=== PATIENT | male | born 1960 | race Caucasian/White ===

== ENCOUNTER 2019-01-31 16:13 | Inpatient (IN) | payer OTHER ==
[2019-01-31] MEDS ORDERED: SODIUM CHLORIDE 0.9% 1,000 ML IV STA (17:05)
[2019-01-31] MEDS ORDERED: THIAMINE 100 MG/ML 2 ML VIAL IM STA (17:10)
[2019-01-31] MEDS ORDERED: LORazepam 2 MG/ML INJ IV PRN ×2 (17:10)
[2019-01-31] MEDS ORDERED: LORazepam 2 MG/ML INJ IV STA (17:10)
--- NOTE | 2019-01-31 17:13 | ED ---
General Adult HPI - General Chief complaint: Alcohol Stated complaint: Seizure Time Seen by Provider: 01/31/19 16:25 Source: patient, EMS Mode of arrival: EMS Limitations: no limitations - History of Present Illness Initial comments: Dictation was produced using [employer] dictation software. please excuse any grammatical, word or spelling errors. Chief Complaint: 58-year-old male past medical history of coronary artery disea se, diabetes and EtOH abuse presents with seizure and tremors. History of Present Illness: Patient is a 58-year-old male. He has a past medical history of EtOH withdrawal. Patient states he drinks more than a fifth of liquor every day. Patient has had a long history of EtOH dependence. He has had withdrawal symptoms multiple medications. Patient states that he was at [facility] for EtOH detoxification. He reports that he is willing puzzle when he had severe uncontrollable shaking. He allegedly had episode of seizure. EMS was called patient's transfer to the emergency department. Patient states he's been feeling shaky to all of his extremities. He is feeling weak. Patient reports that his last EtOH ingestion was approximately 1 week ago. He states he felt okay over the first 3-4 days at the detoxification center however slowly his symptoms increased to today. Seizure. Patient has been diagnosed with delirium tremens in the past. He's been admitted on multiple occasions for alcohol withdrawals. The ROS documented in this emergency department record has been reviewed and confirmed by me. Those systems with pertinent positive or negative responses have been documented in the HPI. All other systems are other negative and/or noncontributory. PHYSICAL EXAM: General Impression: Alert and oriented x3, not in acute distress, tremulous HEENT: Normocephalic atraumatic, extra-ocular movements intact, pupils equal and reactive to light bilaterally, dry mucous membranes Cardiovascular: Heart regular rate and rhythm, S1&S2 audible, no murmurs, rubs or gallops Chest: Lungs clear to auscultation bilaterally, no rhonchi, no wheeze, no rales Abdomen: Bowel sounds present, abdomen soft, non-tender, non-distended, no organomegaly Musculoskeletal: Pulses present and equal in all extremities, no peripheral edema Motor: no focal deficits noted Neurological: CN II-XII grossly intact, no focal motor or sensory deficits noted Skin: Intact with no visualized rashes Psych: Normal affect and mood ED course: 58-year-old male with clinical presentation consistent with EtOH withdrawal. Vital signs upon arrival are within acceptable limits. Patient is severely tremulous at bedside. Laboratory evaluation obtained. CBC unremarkable. Metabolic panel shows hypomagnesemia 1.4. Alcohol is negative. Patient given Ativan with improvement of symptoms. Patient given treatment as fluids, supplemental parenteral vitamins and magnesium. Case discussed with Darwin wright of [facility] who will be accepting patients care. EKG interpretation: Ventricular rate 70, normal sinus rhythm,. Interval 174, care is 86, QTC 436. No MS prolongation, no QTC prolongation, no ST or T-wave changes noted. . Overall, this EKG is unremarkable - Related Data Home Medications Medication Instructions Recorded Confirmed Acetaminophen [Tylenol Arthritis] 650 mg PO Q4H PRN 01/31/19 01/31/19 Aspirin [[place] Aspirin EC] 81 mg PO DAILY@62901/31/19 01/31/19 Atorvastatin [Lipitor] 40 mg PO HS 01/31/19 01/31/19 Chlorpheniramine Maleate 4 mg PO Q4H 01/31/19 01/31/19 [Chlor-Trimeton] Clopidogrel Bisulfate [Plavix] 75 mg PO DAILY@62901/31/19 01/31/19 FLUoxetine HCL [PROzac] 10 mg PO DAILY@62901/31/19 01/31/19 Ibuprofen [Motrin] 600 mg PO Q6H PRN 01/31/19 01/31/19 Insulin Aspart [NovoLOG Flexpen] 12 units SQ AC-TID 01/31/19 01/31/19 Insulin Detemir (Levemir) [Levemir] 46 units SQ HS 01/31/19 01/31/19 Metoprolol (Unknown) 25mg 1 tab PO DAILY@62901/31/19 01/31/19 NIFEdipine [Procardia XL] 60 mg PO DAILY@62901/31/19 01/31/19 Nitroglycerin 0.4 mg SL Q5M PRN 01/31/19 01/31/19 Omeprazole 40 mg PO DAILY@30 01/31/19 01/31/19 cloNIDine HCL [Catapres] 0.2 mg PO TID@0630,1530,2100 01/31/19 01/31/19 metFORMIN HCL 1,000 mg PO DAILY@0630 01/31/19 01/31/19 traZODone HCL [Desyrel] 100 mg PO HS 01/31/19 01/31/19 Allergies Allergy/AdvReac Type Severity Reaction Status Date / Time No Known Allergies Allergy Verified 01/31/19 16:37 Review of Systems ROS Statement: Those systems with pertinent positive or pertinent negative responses have been documented in the HPI. ROS Other: All systems not noted in ROS Statement are negative. Past Medical History Past Medical History: Chest Pain / Angina, Diabetes Mellitus, Myocardial Infarction ([place]), Seizure Disorder History of Any Multi-Drug Resistant Organisms: None Reported Past Surgical History: Adenoidectomy, Appendectomy, Heart Catheterization With Stent, Hernia Repair, Orthopedic Surgery, Tonsillectomy Past Psychological History: Anxiety, Depression Smoking Status: Former smoker Past Alcohol Use History: Abuse, Daily Past Drug Use History: None Reported General Exam Limitations: no limitations Course Vital Signs 01/31/19 16:19 Temperature 98.5 F Pulse Rate 85 Respiratory 16 Rate Blood Pressure 130/82 O2 Sat by Pulse 96 Oximetry Medical Decision Making - Lab Data Result diagrams: 01/31/19 17:11 01/31/19 17:11 Lab Results 01/31/19 01/31/19 Range/Units 17:11 17:11 WBC 6.0 (3.8-10.6) k/uL RBC 3.74 L (4.30-5.90) m/uL Hgb 11.5 L (13.0-17.5) gm/dL Hct 34.4 L (39.0-53.0) % MCV 92.0 (80.0-100.0) fL MCH 30.9 (25.0-35.0) pg MCHC 33.5 (31.0-37.0) g/dL RDW 13.5 (11.5-15.5) % Plt Count 178 (150-450) k/uL Neutrophils % 60 % Lymphocytes % 24 % Monocytes % 10 % Eosinophils % 2 % Basophils % 0 % Neutrophils # 3.6 (1.3-7.7) k/uL Lymphocytes # 1.4 (1.0-4.8) k/uL Monocytes # 0.6 (0-1.0) k/uL Eosinophils # 0.1 (0-0.7) k/uL Basophils # 0.0 (0-0.2) k/uL Sodium 139 (137-145) mmol/L Potassium 4.5 (3.5-5.1) mmol/L Chloride 105 (98-107) mmol/L Carbon Dioxide 26 (22-30) mmol/L Anion Gap 8 mmol/L BUN 15 (9-20) mg/dL Creatinine 0.92 (0.66-1.25) mg/dL Est GFR (CKD-EPI)AfAm >90 (>60 ml/min/1.73 sqM) Est GFR (CKD-EPI)NonAf >90 (>60 ml/min/1.73 sqM) Glucose 120 H (74-99) mg/dL Calcium 9.3 (8.4-10.2) mg/dL Magnesium 1.4 L (1.6-2.3) mg/dL Serum Alcohol <10 mg/dL Disposition Clinical Impression: Alcohol withdrawal syndrome Disposition: ADMITTED IP TO THIS [facility] Condition: Fair Referrals: None,Stated [Primary Care Provider] - 1-2 days Decision Time: 18:32
[2019-01-31 17:40] LABS: Basophils % (A) 0 %; Eosinophils # (A) 0.1 k/uL (0-0.7); Eosinophils % (A) 2 %; HCT 34.4 % (39.0-53.0); HGB 11.5 gm/dL (13.0-17.5); Lymphocytes # (A) 1.4 k/uL (1.0-4.8); Lymphocytes % (A) 24 %; MCH 30.9 pg (25.0-35.0); MCHC 33.5 g/dL (31.0-37.0); Mean Platelet Volume 7.2; Monocytes # (A) 0.6 k/uL (0-1.0); Monocytes % (A) 10 %; Neutrophils # (A) 3.6 k/uL (1.3-7.7); Neutrophils % (A) 60 %; Platelet Count 178 k/uL (150-450); RBC 3.74 m/uL (4.30-5.90); RDW 13.5 % (11.5-15.5)
[2019-01-31 17:52] LABS: African American GFR (CKD) >90 (>60 ml/min/1.73 sqM); Alcohol <10 mg/dL; Anion Gap 8 mmol/L; Blood Urea Nitrogen 15 mg/dL (9-20); Calcium 9.3 mg/dL (8.4-10.2); Carbon Dioxide 26 mmol/L (22-30); Chloride 105 mmol/L (98-107); Glucose 120 mg/dL (74-99); Magnesium 1.4 mg/dL (1.6-2.3); Potassium 4.5 mmol/L (3.5-5.1); Sodium 139 mmol/L (137-145)
[2019-01-31] MEDS ORDERED: NALOXONE 0.4 MG/ML 1 ML VIAL IV PRN (18:33)
[2019-01-31] MEDS ORDERED: ACETAMINOPHEN TAB 325 MG TAB PO PRN ×2 (18:33→18:34)
[2019-01-31] MEDS: THIAMINE 100 MG TAB PO SCH (18:58)
[2019-01-31] MEDS: SODIUM CHLORIDE 0.9% 1,000 ML IV SCH (20:07)
[2019-01-31] MEDS: MAGNESIUM SULFATE-D5W PMX 1 GM in DEXTROSE/WATER 1 100ML.BAG IVPB SCH ×2 (20:07→22:50)
--- NOTE | 2019-01-31 20:42 | P.HPIM ---
History of Present Illness H&P Date: 01/31/19 The patient is a 58 yo M with a PMH of EtOH abuse, diabetes mellitus, and coronary artery disease presented to the ED from [place] after an episode of seizure and continued tremulousness. The patient notes that he had been drinking approx 1 gallon of Vodka daily for 2 weeks, with his last drink 01/21/19. The following morning he developed chest pain for which he was admitted to [facility] where he was treated for his pain along with his alcohol withdrawal. He was discharged from [facility] on 01/28/19 to [facility] for detox. He notes that he initially felt better while at [facility]. Earlier this morning however, he felt worsening tremors and shakiness and subsequently had a witnessed grand-mal seizure @ 1:30 pm. EMS was called and he was brought to the hospital. He was seen in the ED and notes feeling lethargic and tremulous but otherwise denied active complaints. He denied chest pain, SOB, nausea, vomiting, or palpitations. Denied abdominal pain, diarrhea, headache, weakness, numbness, or visual disturbances. The patient notes that he has previously had seizures though they always occured in the context of alcohol withdrawal. He underwent an extensive evaluation in the ED w/ EKG showing NSR @ 70 bpm with TWI in lead III and T-wave flattening in aVF. Alcohol level was < 10, Magnesium level 1.4, WBC 6.0, Hgb 11.5, Platelet 178, and Cr 0.92. The patient is admitted to the medicine service for EtOH withdrawal with seizure. Review of Systems Pertinent positives and negatives as discussed in HPI, a complete review of systems was performed and all other systems are negative. Past Medical History Past Medical History: Chest Pain / Angina, Diabetes Mellitus, Myocardial Infarction ([place]), Seizure Disorder History of Any Multi-Drug Resistant Organisms: None Reported Past Surgical History: Adenoidectomy, Appendectomy, Heart Catheterization With Stent, Hernia Repair, Orthopedic Surgery, Tonsillectomy Past Psychological History: Anxiety, Depression Smoking Status: Former smoker Past Alcohol Use History: Abuse, Daily Past Drug Use History: None Reported - Past Family History Brother(s) Family Medical History: Chest Pain / Angina Medications and Allergies Home Medications Medication Instructions Recorded Confirmed Type Acetaminophen [Tylenol Arthritis] 650 mg PO Q4H PRN 01/31/19 01/31/19 History Aspirin [[place] Aspirin EC] 81 mg PO DAILY@30 01/31/19 01/31/19 History Atorvastatin [Lipitor] 40 mg PO HS 01/31/19 01/31/19 History Chlorpheniramine Maleate 4 mg PO Q4H 01/31/19 01/31/19 History [Chlor-Trimeton] Clopidogrel Bisulfate [Plavix] 75 mg PO DAILY@62901/31/19 01/31/19 History FLUoxetine HCL [PROzac] 10 mg PO DAILY@62901/31/19 01/31/19 History Ibuprofen [Motrin] 600 mg PO Q6H PRN 01/31/19 01/31/19 History Insulin Aspart [NovoLOG Flexpen] 12 units SQ AC-TID 01/31/19 01/31/19 History Insulin Detemir (Levemir) [Levemir] 46 units SQ HS 01/31/19 01/31/19 History Metoprolol (Unknown) 25mg 1 tab PO DAILY@62901/31/19 01/31/19 History NIFEdipine [Procardia XL] 60 mg PO DAILY@62901/31/19 01/31/19 History Nitroglycerin 0.4 mg SL Q5M PRN 01/31/19 01/31/19 History Omeprazole 40 mg PO DAILY@62901/31/19 01/31/19 History cloNIDine HCL [Catapres] 0.2 mg PO TID@0630,1530,2100 01/31/19 01/31/19 History metFORMIN HCL 1,000 mg PO DAILY@62901/31/19 01/31/19 History traZODone HCL [Desyrel] 100 mg PO HS 01/31/19 01/31/19 History Allergies Allergy/AdvReac Type Severity Reaction Status Date / Time No Known Allergies Allergy Verified 01/31/19 16:37 Physical Exam Vitals: Vital Signs Temp Pulse Resp BP Pulse Ox 01/31/19 19:30 72 15 142/98 01/31/19 19:00 71 20 147/90 01/31/19 16:19 98.5 F 85 16 130/82 96 Intake and Output 01/31/19 01/31/19 01/31/19 06:59 14:59 22:59 Other: Weight 90.718 kg General: Tremulous M, appears at stated age, obese Derm: no unusual rashes/lesions no unusual ecchymoses, warm, dry Head: atraumatic, normocephalic, symmetric Eyes: EOMI, no lid lag, anicteric sclera, pupils equal round reactive to light ENT: Nose and ears atraumatic, no thrush, no pharyngeal erythema Neck: No thyromegaly, no cervical lymphadenopathy, trachea midline, supple Mouth: no lip lesion, mucus membranes moist Cardiovascular: S1S2 reg, no murmur, positive posterior tibial pulse bilateral, no edema, capillary refill less than 2 seconds Lungs: CTA bilateral, no rhonchi, no rales , no accessory muscle use Abdominal: soft, nontender to palpation, no guarding, no appreciable organomegaly, normal bowel sounds Ext: no gross muscle atrophy, muscle strength 5 out of 5 in all 4 extremities grossly, no contractures, Neuro: CN II-XI grossly intact, light touch intact all 4 extremities, out- stretched hand-tremor, tongue fasciculations present Psych: Alert, oriented to person, place, and time, appropriate affect Results CBC & Chem 7: 01/31/19 17:11 01/31/19 17:11 Labs: Abnormal Lab Results - Last 24 Hours (Table) 01/31/19 01/31/19 Range/Units 17:11 17:11 RBC 3.74 L (4.30-5.90) m/uL Hgb 11.5 L (13.0-17.5) gm/dL Hct 34.4 L (39.0-53.0) % Glucose 120 H (74-99) mg/dL Magnesium 1.4 L (1.6-2.3) mg/dL Assessment and Plan Plan: EtOH withdrawal seizure -CIWA protocol -Seizure, aspiration, fall precautions -Thiamine, Folate, MV -IVFs -Advised patient on importance of cessation Diabetes Mellitus -DENISSE with FS -Patient notes he previously took Levemir 46 U qhs and Novolog 12 U TIDAC, though was gradually decreased and eventually taken off Insulin all-together due to excellent control. He notes that he is currently only on Metformin and Insulin sliding scale with meals and his last A1C was "5 something" -Hold all home insulin doses for now CAD, HTN, HLD -Resume home meds DVT prophylaxis -Lovenox The patient is admitted with an anticipated greater than 2 midnight stay for evaluation of EtOH withdrawal CODE STATUS:Full Code Discussed with: Patient Anticipated discharge date: 02/03/[address]: [facility] A total of 40 minutes was spent on the care of this complex patient more than 50% of the time was spent in counseling and care coordination.
[2019-01-31] MEDS ORDERED: MAGNESIUM SULFATE-D5W PMX 1 GM in DEXTROSE/WATER 1 100ML.BAG IVPB SCH (20:45)
[2019-01-31] MEDS: ATORVASTATIN 40 MG TAB PO SCH (22:50)
[2019-01-31] MEDS: cloNIDine HCL 0.2 MG TAB PO SCH (22:50)
[2019-01-31 22:59] LABS: Glucose,Whole Blood 110 mg/dL (75-99)
[2019-01-31] MEDS: INSULIN ASPART (NovoLOG) 100 UNIT/ML VIAL SQ SCH (22:59)
[2019-01-31] MEDS: traZODone HCL 100 MG TAB PO SCH (23:00)
[2019-02-01] MEDS: LORazepam 2 MG/ML INJ IV PRN ×3 (01:35→23:04)
[2019-02-01] MEDS ORDERED: metFORMIN 500 MG TAB PO SCH (06:30)
[2019-02-01] MEDS ORDERED: ASPIRIN 81 MG PO SCH (06:30)
[2019-02-01 06:42] LABS: Glucose,Whole Blood 116 mg/dL (75-99)
[2019-02-01] MEDS: INSULIN ASPART (NovoLOG) 100 UNIT/ML VIAL SQ SCH ×4 (08:27→21:56)
[2019-02-01] MEDS: MAGNESIUM SULFATE-D5W PMX 1 GM in DEXTROSE/WATER 1 100ML.BAG IVPB SCH ×2 (08:31→11:34)
[2019-02-01] MEDS: THIAMINE 100 MG TAB PO SCH ×2 (08:34→17:32)
[2019-02-01] MEDS: PANTOPRAZOLE 40 MG TABLET PO SCH (08:34)
[2019-02-01] MEDS: FOLIC ACID 1 MG TAB PO SCH (08:34)
[2019-02-01] MEDS: METOPROLOL SUCCINATE (ER) 25 MG TAB.ER.24H PO SCH (08:35)
[2019-02-01] MEDS: CLOPIDOGREL 75 MG TAB PO SCH (08:35)
[2019-02-01] MEDS: FLUoxetine HCL 10 MG CAP PO SCH (08:35)
[2019-02-01] MEDS: MULTIVITAMINS, THERA 1 EACH TAB PO SCH (08:35)
[2019-02-01] MEDS: cloNIDine HCL 0.2 MG TAB PO SCH ×3 (08:35→21:56)
[2019-02-01] MEDS: ENOXAPARIN 40 MG/0.4 ML SYRINGE SQ SCH (08:36)
[2019-02-01 10:02] LABS: HCT 36.1 % (39.0-53.0); HGB 11.9 gm/dL (13.0-17.5); MCH 30.5 pg (25.0-35.0); MCHC 32.9 g/dL (31.0-37.0); MCV 92.8 fL (80.0-100.0); Platelet Count 190 k/uL (150-450); RDW 13.3 % (11.5-15.5); WBC 5.6 k/uL (3.8-10.6)
[2019-02-01 10:16] LABS: ALT 31 U/L (21-72); AST 28 U/L (17-59); African American GFR (CKD) >90 (>60 ml/min/1.73 sqM); Alkaline Phosphatase 56 U/L (38-126); Anion Gap 7 mmol/L; Blood Urea Nitrogen 9 mg/dL (9-20); Calcium 9.2 mg/dL (8.4-10.2); Carbon Dioxide 28 mmol/L (22-30); Chloride 103 mmol/L (98-107); Glucose 134 mg/dL (74-99); Magnesium 2.1 mg/dL (1.6-2.3); Potassium 4.4 mmol/L (3.5-5.1); Sodium 138 mmol/L (137-145); Total Bilirubin 0.4 mg/dL (0.2-1.3); Total Protein 6.6 g/dL (6.3-8.2)
[2019-02-01 10:18] LABS: Prothrombin Time 10.8 sec (9.0-12.0)
--- NOTE | 2019-02-01 10:44 | P.PN ---
Subjective Progress Note Date: 02/01/19 Patient seen and examined at bedside, reported noted to be at [place] for the last couple of days after being discharged from [facility], reports his last drink was approximately a week ago, here for alcohol withdrawal seizures, reported it started with lightheadedness and tremors with headaches. Noted to be hypomagnesemic in the ER 1.4. no acute events overnight. Patient denies any severe alcohol withdrawals or seizures previously Objective - Vital Signs Vital signs: Vital Signs Temp 97.8 F 02/01/19 09:17 Pulse 64 02/01/19 09:17 Resp 16 02/01/19 09:17 BP 121/82 02/01/19 09:17 Pulse Ox 97 02/01/19 09:17 Intake & Output 01/31/19 02/01/19 02/01/19 18:59 06:59 18:59 Weight 90.718 kg - Exam Constitutional: No acute distress, conversant, pleasant Eyes: Anicteric sclerae, moist conjunctiva, no lid-lag, PERRLA ENMT: NC/AT,Oropharynx clear, no erythema, exudates Neck:Supple, FROM, no masses, or JVD, No carotid bruits; No thyromegaly Lungs: Clear to auscultation, Clear to percussion, Normal respiratory effort, no accessory muscle use Cardiovascular: Heart regular in rate and rhythm, No murmurs, gallops, or rubs no peripheral edema Abdominal: Soft Nontender, nom distended, no guarding, no rebound or rigidity, Normoactive bowel sounds No hepatomegaly, No splenomegaly, No palpable mass No abdominal wall hernia noted Skin: Normal temperature, tone, texture, turgor, No induration No subcutaneous nodules, No rash, lesions, No ulcers Extremities:No digital cyanosis No clubbing, Pedal pulses intact and symmetrical Radial pulses intact and symmetrical Normal gait and station, No calf tenderness Psychiatric: Alert and oriented to person, place and time, Appropriate affect Intact judgement Neuro: Muscles Strength 5/5 in all 4 extremities, Sensation to light touch grossly present throughout, Cranial nerves II-XII grossly intact. No focal sensory deficits - Labs CBC & Chem 7: 02/01/19 09:22 02/01/19 09:22 Labs: Abnormal Lab Results - Last 24 Hours (Table) 01/31/19 01/31/19 01/31/19 Range/Units 17:11 17:11 22:58 RBC 3.74 L (4.30-5.90) m/uL Hgb 11.5 L (13.0-17.5) gm/dL Hct 34.4 L (39.0-53.0) % Glucose 120 H (74-99) mg/dL POC Glucose (mg/dL) 110 H (75-99) mg/dL Magnesium 1.4 L (1.6-2.3) mg/dL 02/01/19 02/01/19 02/01/19 Range/Units 06:22 09:22 09:22 RBC 3.90 L (4.30-5.90) m/uL Hgb 11.9 L (13.0-17.5) gm/dL Hct 36.1 L (39.0-53.0) % Glucose 134 H (74-99) mg/dL POC Glucose (mg/dL) 116 H (75-99) mg/dL Magnesium (1.6-2.3) mg/dL Assessment and Plan (1) Alcohol withdrawal seizure Narrative/Plan: * Likely triggered by hypomagnesemia * We'll consult neurology for further recommendations * Continue symptom triggered CIWA withdrawal protocol Current Visit: Yes Status: Acute Code(s): F10.239 - ALCOHOL DEPENDENCE WITH WITHDRAWAL, UNSPECIFIED; R56.9 - UNSPECIFIED CONVULSIONS SNOMED Code(s): 546915349 (2) Chronic alcohol dependence, continuous Narrative/Plan: * Treatment as above Current Visit: Yes Status: Chronic Code(s): F10.20 - ALCOHOL DEPENDENCE, UNCOMPLICATED SNOMED Code(s): 301100420 (3) Hypomagnesemia Narrative/Plan: * Resolved after repletion we'll continue with daily oral replacement starting tomorrow Current Visit: Yes Status: Acute Code(s): E83.42 - HYPOMAGNESEMIA SNOMED Code(s): 309743957 (4) Essential hypertension Narrative/Plan: * Blood pressure stable controlled on current regimen * Continue to monitor Current Visit: Yes Status: Acute Code(s): I10 - ESSENTIAL (PRIMARY) HYPERTENSION SNOMED Code(s): 35947946 Plan: * Disposition * Follow-up recommendations from consultants anticipate discharge tomorrow
[2019-02-01 11:34] LABS: Glucose,Whole Blood 134 mg/dL (75-99)
[2019-02-01] MEDS: SODIUM CHLORIDE 0.9% 1,000 ML IV SCH ×2 (11:34→21:55)
--- NOTE | 2019-02-01 16:05 | P.CNNES ---
History of Present Illness Consult date: 02/01/19 Requesting physician: Darwin Taylor Reason for Consult: Alcohol withdrawal seizure Chief complaint: Seizure x1 History of Present Illness: This is a 58 RH male h/o CAD, DM and EtOH abuse who presented to the ER on the day of admission after a single GTC seizure and continued tremulousness. Patient had been drinking up to 1 gallon of vodka daily for 2 weeks. He had quit alcohol before but never had a seizure until the above. He was also found to have profound hypomagnesemia as well. Patient was placed on CIWA protocol. His metabolic derangements are being corrected. He has not had further seizure activity. He does state that his memory is not as great as before. He played football when he was in school and had several concussions. He would like further neurological testing for the above. He also c/o pain in his right hamstring. Review of Systems I have performed a 14-organ ROS with patient that are negative except as per HPI. Past Medical History Past Medical History: Chest Pain / Angina, Diabetes Mellitus, Myocardial Infarction ([place]), Seizure Disorder Last Myocardial Infarction Date:: may 2016 History of Any Multi-Drug Resistant Organisms: None Reported Past Surgical History: Adenoidectomy, Appendectomy, Heart Catheterization With Stent, Hernia Repair, Orthopedic Surgery, Tonsillectomy Date of Last Stent Placement:: may 2016 Past Psychological History: Anxiety, Depression Smoking Status: Former smoker Past Alcohol Use History: Abuse, Daily Past Drug Use History: None Reported - Past Family History Brother(s) Family Medical History: Chest Pain / Angina Medications and Allergies Home Medications Medication Instructions Recorded Confirmed Type Acetaminophen [Tylenol Arthritis] 650 mg PO Q4H PRN 01/31/19 01/31/19 History Aspirin [[place] Aspirin EC] 81 mg PO DAILY@62901/31/19 01/31/19 History Atorvastatin [Lipitor] 40 mg PO HS 01/31/19 01/31/19 History Chlorpheniramine Maleate 4 mg PO Q4H 01/31/19 01/31/19 History [Chlor-Trimeton] Clopidogrel Bisulfate [Plavix] 75 mg PO DAILY@30 01/31/19 01/31/19 History FLUoxetine HCL [PROzac] 10 mg PO DAILY@62901/31/19 01/31/19 History Ibuprofen [Motrin] 600 mg PO Q6H PRN 01/31/19 01/31/19 History Insulin Aspart [NovoLOG Flexpen] 12 units SQ AC-TID 01/31/19 01/31/19 History Insulin Detemir (Levemir) [Levemir] 46 units SQ HS 01/31/19 01/31/19 History Metoprolol Succinate [Toprol XL] 25 mg PO DAILY@0630 01/31/19 01/31/19 History NIFEdipine [Procardia XL] 60 mg PO DAILY@30 01/31/19 01/31/19 History Nitroglycerin 0.4 mg SL Q5M PRN 01/31/19 01/31/19 History Omeprazole 40 mg PO DAILY@30 01/31/19 01/31/19 History cloNIDine HCL [Catapres] 0.2 mg PO TID@0630,1530,2100 01/31/19 01/31/19 History metFORMIN HCL 1,000 mg PO DAILY@0630 01/31/19 01/31/19 History traZODone HCL [Desyrel] 100 mg PO HS 01/31/19 01/31/19 History Allergies Allergy/AdvReac Type Severity Reaction Status Date / Time No Known Allergies Allergy Verified 01/31/19 16:37 Physical Examination - Vital Signs Vital Signs: Vital Signs Temp Pulse Pulse Resp BP BP BP 02/01/19 13:55 97.5 F L 64 16 106/63 02/01/19 09:17 97.8 F 64 16 121/82 02/01/19 08:43 70 18 119/84 02/01/19 08:29 66 119/84 02/01/19 07:29 97.9 F 68 18 112/79 02/01/19 06:18 98.0 F 69 16 126/87 02/01/19 03:54 98.3 F 67 16 120/99 02/01/19 01:37 64 16 120/89 01/31/19 23:34 98.3 F 65 16 145/93 01/31/19 22:00 70 15 152/94 01/31/19 21:00 69 18 142/89 01/31/19 20:00 72 16 127/68 01/31/19 19:30 72 15 142/98 01/31/19 19:00 71 20 147/90 01/31/19 16:19 98.5 F 85 16 130/82 Pulse Ox 02/01/19 13:55 96 02/01/19 09:17 97 02/01/19 08:43 02/01/19 08:29 02/01/19 07:29 100 02/01/19 06:18 99 02/01/19 03:54 98 02/01/19 01:37 98 01/31/19 23:34 98 01/31/19 22:00 01/31/19 21:00 01/31/19 20:00 01/31/19 19:30 01/31/19 19:00 01/31/19 16:19 96 Intake and Output 02/01/19 02/01/19 02/01/19 06:59 14:59 22:59 Output Total 500 Balance -500 Output: Urine 500 Other: # Voids 2 Gen NAD Pleasant and cooperative HEENT NCAT Sclera without icterus O/P clear Neck Supple No carotid bruit Cor RRR no m/r/g Lungs CTAB Abd Soft NTND +BS Ext Warm to touch No edema Neuro MS A+Ox4 Normal fluency Able to follow all commands CN PERRL VFF no APD EOMI no nystagmus or MARGARITA No facial asymmetry [place]'s symmetric Hearing intact to normal voice bilaterally Speech not dysarthric Equal elevation of palate Tongue midline Sym shrug and SCM bilaterally Motor Normal bulk/tone No pronator dirft Diffuse appendicular postural and action tremors No asterixis, myoclonus or other adventitious movements Strength 5/5 sym throughout Sens Intact to LT x4 No neglect Coord No dysmetria on FTN bilaterally DTRs 2+/4 sym throughout Toes downgoing bilaterally No clonus at achilles Gait Deferred Results - Laboratory Findings CBC and BMP: 02/01/19 09:22 02/01/19 09:22 Abnormal Lab Findings: Abnormal Labs 01/31/19 01/31/19 01/31/19 17:11 17:11 22:58 RBC 3.74 L Hgb 11.5 L Hct 34.4 L Glucose 120 H POC Glucose (mg/dL) 110 H Magnesium 1.4 L 02/01/19 02/01/19 02/01/19 06:22 09:22 09:22 RBC 3.90 L Hgb 11.9 L Hct 36.1 L Glucose 134 H POC Glucose (mg/dL) 116 H Magnesium 02/01/19 11:31 RBC Hgb Hct Glucose POC Glucose (mg/dL) 134 H Magnesium Assessment and Plan Assessment: New-onset single seizure in the setting of alcohol withdrawal and hypomagnesemia Remote history of concussions Plan: -[facility] protocol. -Will not load AED at this time given he has not had recurrent seizures -Thiamine 100mg po qd x3 -Will obtain CT Head wo cont since he had a new-onset single seizure and there was a remote h/o concussion -EEG ordered and pending -Seizure precautions -Alcohol cessation counseling held -Correct all metabolic derangements -He should not drive for 6 months from his last clinical seizure in accordance with the state law of [place]. Same common sense applies to engaging in any activity that may endanger patient and/or others should he have recurrent seizure activity. -As for further cognitive evaluation, this should be done as outpatient once he is done withdrawing. -As for his hamstring, we can have PT work with him while in-house. If he still experiences significant pain behavior, EMG/NCS may be considered as outpatient as well. -Please make referral for patient to establish care with outpatient neurology locally. -d/w patient and primary team. All questions answered. Thank you for this consultation. Please call with ?. Time with Patient: Greater than 30 (Time spent in direct patient care, greater than 50% of which was spent in [id number] counseling and coordination of care: 70 minutes.)
[2019-02-01] MEDS: GABAPENTIN 300 MG CAP PO SCH ×2 (16:18→21:56)
[2019-02-01 16:31] LABS: Glucose,Whole Blood 163 mg/dL (75-99)
--- NOTE | 2019-02-01 16:59 | CT ---
EXAMINATION TYPE: CT brain wo con DATE OF EXAM: 02/01/2019 COMPARISON: None HISTORY: seizures CT DLP: 1158.4 mGycm Automated exposure control for dose reduction was used. FINDINGS: Ventricles have normal size. There is no mass effect nor midline shift. There is no sign of intracran ial hemorrhage. There is some mild mucosal thickening right maxillary sinus. There is 1 cm calcific cutaneous density in the left posterior parietal region probably a sebaceous c yst. IMPRESSION: MILD ATROPHY APPROPRIATE FOR AGE. NO ACUTE INTRACRANIAL ABNORMALITY.
[2019-02-01 19:10] LABS: Hemoglobin A1C 5.9 % (4.0-6.0)
[2019-02-01 19:52] LABS: Glucose,Whole Blood 134 mg/dL (75-99)
[2019-02-01] MEDS: ATORVASTATIN 40 MG TAB PO SCH (21:55)
[2019-02-01] MEDS: traZODone HCL 100 MG TAB PO SCH (21:55)
[2019-02-02] MEDS ORDERED: METOPROLOL SUCCINATE (ER) 25 MG TAB.ER.24H PO SCH (06:30)
[2019-02-02 07:14] LABS: Glucose,Whole Blood 123 mg/dL (75-99)
[2019-02-02] MEDS: INSULIN ASPART (NovoLOG) 100 UNIT/ML VIAL SQ SCH ×2 (07:32→12:26)
[2019-02-02] MEDS: cloNIDine HCL 0.2 MG TAB PO SCH (07:45)
[2019-02-02] MEDS: FLUoxetine HCL 10 MG CAP PO SCH (07:45)
[2019-02-02] MEDS: GABAPENTIN 300 MG CAP PO SCH (07:45)
[2019-02-02] MEDS: CLOPIDOGREL 75 MG TAB PO SCH (07:45)
[2019-02-02] MEDS: MULTIVITAMINS, THERA 1 EACH TAB PO SCH (07:46)
[2019-02-02] MEDS: FOLIC ACID 1 MG TAB PO SCH (07:46)
[2019-02-02] MEDS: THIAMINE 100 MG TAB PO SCH (07:46)
[2019-02-02] MEDS: PANTOPRAZOLE 40 MG TABLET PO SCH (07:46)
[2019-02-02] MEDS: ENOXAPARIN 40 MG/0.4 ML SYRINGE SQ SCH (07:48)
[2019-02-02] MEDS ORDERED: MAGNESIUM OXIDE 400 MG TAB PO SCH (09:00)
[2019-02-02] MEDS ORDERED: ASPIRIN 81 MG PO SCH (09:00)
[2019-02-02] MEDS: SODIUM CHLORIDE 0.9% 1,000 ML IV SCH (10:11)
[2019-02-02] MEDS: METOPROLOL SUCCINATE (ER) 25 MG TAB.ER.24H PO SCH (10:12)
--- NOTE | 2019-02-02 10:53 | P.PN ---
Subjective Progress Note Date: 02/02/19 Principal diagnosis: EtOH W/D seizure Less shaky today. Still has right hamstring pain. c/o seeing moving spots. No seizure. No other neuro c/o. Objective - Vital Signs Vital signs: Vital Signs Temp 97.6 F 02/02/19 07:00 Pulse 58 L 02/02/19 07:00 Resp 16 02/02/19 07:00 BP 139/85 02/02/19 07:00 Pulse Ox 98 02/02/19 07:00 Intake & Output 02/01/19 02/02/19 02/02/19 18:59 06:59 18:59 Intake Total 265 520 Output Total 500 1800 625 Balance -500 -1535 -105 Intake: Oral 265 520 Output: Urine 500 1800 625 Other: Voiding Method Urinal # Voids 2 1 1 - Exam Gen NAD Pleasant and cooperative MS A+Ox4 Normal speech CN II-XII grossly intact no nystagmus Motor Normal bulk/tone Reduced tremor in [place] x4 Sens Intact to LT x4 Coord Not tested DTRs 2+/4 sym throughout Gait Deferred - Labs CBC & Chem 7: 02/01/19 09:22 02/01/19 09:22 Labs: Abnormal Lab Results - Last 24 Hours (Table) 02/01/19 02/01/19 02/01/19 Range/Units 11:31 16:28 19:50 POC Glucose (mg/dL) 134 H 163 H 134 H (75-99) mg/dL 02/02/19 Range/Units 07:12 POC Glucose (mg/dL) 123 H (75-99) mg/dL Assessment and Plan Assessment: New-onset single seizure in the setting of alcohol withdrawal and hypomagnesemia Remote history of concussions Plan: -[facility] protocol. -Will not load AED at this time given he has not had recurrent seizures -Thiamine 100mg po qd x3 -Will obtain CT Head wo cont since he had a new-onset single seizure and there was a remote h/o concussion -EEG ordered and pending -Seizure precautions -Correct all metabolic derangements -He should not drive for 6 months from his last clinical seizure in accordance with the state law of [place]. Same common sense applies to engaging in any activity that may endanger patient and/or others should he have recurrent seizure activity. -As for further cognitive evaluation, this should be done as outpatient once he is done withdrawing. -PT for right hamstring pain. If he still experiences significant pain behavior, EMG/NCS may be considered as outpatient. -Please make referral for patient to establish care with outpatient neurology locally. -d/w patient and primary team. All questions answered. Thank you again for this consultation. Please call with ?. Time with Patient: Less than 30 (Time spent in direct patient care, greater than 50% of which was spent in [id number]-[id number] counseling and coordination of care: 25 minutes.)
[2019-02-02 12:47] LABS: Glucose,Whole Blood 107 mg/dL (75-99)
--- NOTE | 2019-02-02 12:56 | P.DS ---
Providers Date of admission: 01/31/19 18:33 Expected date of discharge: 02/02/19 Attending physician: Darwin Taylor MD Consults: 02/01/19 07:15 Consult Physician Routine Consulting Provider: Waqar Mackay Consult Reason/Comments: etoh wd seizure Do you want consulting provider notified?: Yes Primary care physician: Stated None - Discharge Diagnosis(es) (1) Alcohol withdrawal seizure Status: Acute (2) Chronic alcohol dependence, continuous Status: Chronic (3) Hypomagnesemia Status: Acute (4) Essential hypertension Status: Acute Hospital Course: The patient is a 58 year old male with a past with a history of essential hypertension chronic alcoholism that was admitted after presenting here from [place] where he registered in a inpatient alcohol treatment program for suspected alcohol withdrawal in the setting of chronic alcoholism and hypomagnesemia. Patient was placed on alcohol withdrawal protocol place on seizure precautions with plans for thiamine and folic acid multivitamins and IV fluids and neurology was consulted for further recommendations. CT of the head was ordered that showed mild atrophy appropriate for age with no acute intracranial abnormality EEG performed was otherwise normal and neurology recommended not loading the patient with antiepileptic drugs at this time. The patient was advised that he should not drive for 6 months from his last seizure in accordance with [place] state law. The patient was subsequently transferred in stable condition back to [place] to continue his alcohol treatment program. This discharge process took approximately 35 minutes. Focused exam Neurological : Cranial nerves II 12 grossly intact, moving all extremities equally, DTRs 2+ symmetric bilaterally throughout, gait not assessed Patient Condition at Discharge: Good Plan - Discharge Summary New Discharge Prescriptions: New Folic Acid 1 mg PO DAILY #30 tab Magnesium Oxide [Mag-Ox] 400 mg PO DAILY #30 tab Multivitamins, Thera [Multivitamin (formulary)] 1 each PO DAILY #30 tab Thiamine [Vitamin B-1] 100 mg PO BID-W/MEALS #60 tab Continue Ibuprofen [Motrin] 600 mg PO Q6H PRN PRN Reason: Pain Acetaminophen [Tylenol Arthritis] 650 mg PO Q4H PRN PRN Reason: Pain Nitroglycerin 0.4 mg SL Q5M PRN PRN Reason: Chest Pain Atorvastatin [Lipitor] 40 mg PO HS traZODone HCL [Desyrel] 100 mg PO HS Insulin Detemir (Levemir) [Levemir] 46 units SQ HS Insulin Aspart [NovoLOG Flexpen] 12 units SQ AC-TID NIFEdipine [Procardia XL] 60 mg PO DAILY@629 Clopidogrel Bisulfate [Plavix] 75 mg PO DAILY@629 metFORMIN HCL 1,000 mg PO DAILY@629 Aspirin [[place] Aspirin EC] 81 mg PO DAILY@629 cloNIDine HCL [Catapres] 0.2 mg PO TID@0630,1530,2100 Omeprazole 40 mg PO DAILY@629 FLUoxetine HCL [PROzac] 10 mg PO DAILY@629 Chlorpheniramine Maleate [Chlor-Trimeton] 4 mg PO Q4H Metoprolol Succinate [Toprol XL] 25 mg PO DAILY@629 Discharge Medication List Acetaminophen [Tylenol Arthritis] 650 mg PO Q4H PRN 01/31/19 [History] Aspirin [[place] Aspirin EC] 81 mg PO DAILY@62901/31/19 [History] Atorvastatin [Lipitor] 40 mg PO HS 01/31/19 [History] Chlorpheniramine Maleate [Chlor-Trimeton] 4 mg PO Q4H 01/31/19 [History] Clopidogrel Bisulfate [Plavix] 75 mg PO DAILY@62901/31/19 [History] FLUoxetine HCL [PROzac] 10 mg PO DAILY@62901/31/19 [History] Ibuprofen [Motrin] 600 mg PO Q6H PRN 01/31/19 [History] Insulin Aspart [NovoLOG Flexpen] 12 units SQ AC-TID 01/31/19 [History] Insulin Detemir (Levemir) [Levemir] 46 units SQ HS 01/31/19 [History] Metoprolol Succinate [Toprol XL] 25 mg PO DAILY@62901/31/19 [History] NIFEdipine [Procardia XL] 60 mg PO DAILY@62901/31/19 [History] Nitroglycerin 0.4 mg SL Q5M PRN 01/31/19 [History] Omeprazole 40 mg PO DAILY@62901/31/19 [History] cloNIDine HCL [Catapres] 0.2 mg PO TID@0630,1530,2100 01/31/19 [History] metFORMIN HCL 1,000 mg PO DAILY@0630 01/31/19 [History] traZODone HCL [Desyrel] 100 mg PO HS 01/31/19 [History] Folic Acid 1 mg PO DAILY #30 tab 02/02/19 [Rx] Magnesium Oxide [Mag-Ox] 400 mg PO DAILY #30 tab 02/02/19 [Rx] Multivitamins, Thera [Multivitamin (formulary)] 1 each PO DAILY #30 tab 02/02/19 [Rx] Thiamine [Vitamin B-1] 100 mg PO BID-W/MEALS #60 tab 02/02/19 [Rx] Follow up Appointment(s)/Referral(s): None,Stated [Primary Care Provider] - 1-2 days Activity/Diet/Wound Care/Special Instructions: Please call [facility] for transportation on discharge, #[phone] Discharge Disposition: TRANSFER TO PSYCH HOSP/UNIT
[2019-02-02 15:30] VITALS: BP 125/82; PULSE 61; RESP 15; TEMP 97.5
--- NOTE | 2019-02-02 16:11 | EEG ---
ELECTROENCEPHALOGRAM REPORT DATE OF SERVICE: 02/02/2019 CLINICAL HISTORY: Alcohol withdrawal seizure. TYPE OF RECORDING: Bedside tracing using the 10-20 international electroplacement system. The patient has been getting lorazepam as part of the [facility] protocol. FINDINGS: The background of this tracing is seen with a reactive alpha rhythm that attenuates on eye opening and returns upon eye closure. Photic stimulation elicits a symmetric driving response. Hyperventilation is not performed in this recording. There is no sleep architecture seen. This tracing does not reveal background asymmetry or epileptiform patterns. IMPRESSION: This is a normal awake electroencephalogram without background asymmetry or epileptiform discharges. Clinical correlation is advised. MMODL / IJN: [id number] / MTDD
== END 2019-02-02 16:28 | disposition designated cancer center or children's hospital (05) | DRG 897 ==
LOC: EC 16:13 → 4MS4W 18:33 → 3NMEDONC 02-01 01:54 → 4SSUR 02-01 07:55
PROVIDERS: ADMIT Family Medicine; ATTEND Family Medicine
DX: F10.239 Alcohol dependence with withdrawal, unspecified (principal); E83.42 Hypomagnesemia; E11.9 Type 2 diabetes mellitus without complications; G40.909 Epilepsy, unspecified, not intractable, without status epilepticus; I25.10 Atherosclerotic heart disease of native coronary artery without angina pectoris; I10 Essential (primary) hypertension; E78.5 Hyperlipidemia, unspecified; F32.9 Major depressive disorder, single episode, unspecified; F41.9 Anxiety disorder, unspecified; I25.2 Old myocardial infarction; Y90.0 Blood alcohol level of less than 20 mg/100 ml; Z79.02 Long term (current) use of antithrombotics/antiplatelets; Z79.4 Long term (current) use of insulin; Z79.82 Long term (current) use of aspirin; Z79.899 Other long term (current) drug therapy; Z87.891 Personal history of nicotine dependence; Z95.5 Presence of coronary angioplasty implant and graft; Z98.890 Other specified postprocedural states; Z87.820 Personal history of traumatic brain injury
CPT/HCPCS: 36415; 70450; 80048; 80053; 80320; 83036; 83735; 85025; 85027; 85610; 93005; 95816; 96361; 96365; 96366; 96372; 96375; 96376; 99285